=== PATIENT | male | born 1950 | race Caucasian/White ===

== ENCOUNTER 2016-12-24 08:10 | Emergency (ER) | payer MEDICAID ==
[~2016-12-24] VITALS: Ht 160 cm; Wt 72.0 kg
[~2016-12-24 08:10] MED LIST: ATEN-42 PO; DOK PO; LEVO25TA7 PO; LISI10TA5 PO; MULT-1146 PO; RISP3TAB13 PO; VITA; [UNRECOGNIZED DRUG - OTHER] PO
[2016-12-24] MEDS ORDERED: LACTULOSE 20G/30ML UDC PO ONE (10:15)
[2016-12-24 11:00] VITALS: BP 118/71
== END 2016-12-24 11:26 | disposition home or self-care (01) ==
LOC: ER 09:43
DX: K59.00 Constipation, unspecified (principal); E03.9 Hypothyroidism, unspecified; K21.9 Gastro-esophageal reflux disease without esophagitis; H54.0 Blindness, both eyes
CPT/HCPCS: 74000; 99283; Z7610